=== PATIENT | female | born 1935 | race Caucasian/White ===

== ENCOUNTER → 2019-01-23 | Outpatient (CLI) | payer MEDICARE ==
[~2019-01-23] MED LIST: IOHEXOL 240 MG/ML 50ML VIAL. ONE; IOHEXOL 300 MG/ML 75 ML VIAL. IV ONE
[2019-01-23 13:40] LABS: CREATININE 2.6 mg/dL (0.6-1.0); GFR 17.7
--- NOTE | 2019-01-23 14:49 | RAD ---
EXAM: Abdomen and pelvis CT without intravenous contrast. HISTORY: Weight loss. TECHNIQUE: Computed tomographic images of the abdomen and pelvis were obtained without contrast. *One or more of the following individualized dose reduction techniques were utilized for this examination: 1. Automated exposure control. 2. Adjustment of the mA and/or kV according to patient size. 3. Use of iterative reconstruction technique. COMPARISON: None. FINDINGS: Evaluation of the lower thorax demonstrates nonspecific groundglass opacity within both lungs likely due to atelectasis. There is superimposed right middle lobe and lingular pleural parenchymal scarring. There is no pleural effusion. The heart is upper normal in size. There is dense calcification of the mitral valve annulus. There is coronary artery atherosclerosis. There are few nonspecific anterior cardiophrenic angle lymph nodes. There is mild hepatomegaly. There are suspected recanalization of the umbilical vein. There is suggestion of slight surface nodularity. There is vicarious excretion of contrast into the gallbladder. There is a tiny proximal duodenal diverticulum. The pancreas is unremarkable. The spleen is mildly enlarged, measuring 12.7 cm in maximum dimension. The adrenal glands are unremarkable. There is a 1 mm nonobstructing left renal stone. There are hypodense lesions within the upper pole the right kidney likely due to cysts. There is mild superior right renal cortical thinning. There is moderate colonic stool. There is distal colonic diverticulosis without evidence of diverticulitis. The bladder is unremarkable. There is a calcification along the left posterior course of the urethra. This appears to be separate from the vagina. There is a tiny focus of gas within the bladder likely due to recent catheterization. There is aortic and aortic branch vessel atherosclerosis. There is degenerative change predominantly at L5-S1. IMPRESSION: 1. Mild hepatosplenomegaly. There is slight suspected recanalization of the umbilical vein which may be due to a component of cirrhosis. Correlate with liver function laboratory values. 2. Colonic diverticulosis. 3. Small right renal cysts. 4. No acute abdominal or pelvic finding. Electronically signed by: Yoko Garcias MD (01/23/2019 2:46 PM) [place] [id number]
== END | disposition home or self-care (01) ==
LOC: CT 12:22
PROVIDERS: ATTEND Registered Nurse
DX: K57.30 Diverticulosis of large intestine without perforation or abscess without bleeding (principal); N28.1 Cyst of kidney, acquired; R16.2 Hepatomegaly with splenomegaly, not elsewhere classified; N20.0 Calculus of kidney; I70.0 Atherosclerosis of aorta; I25.10 Atherosclerotic heart disease of native coronary artery without angina pectoris
CPT/HCPCS: 36415; 74176; 82565; 84520

== ENCOUNTER → 2019-05-14 | Outpatient (CLI) | payer MEDICARE ==
[2019-05-14 12:04] LABS: BASO % 1 % (0-3); EOS # 0.1 x10^3/uL (0.0-0.7); EOS % 2 % (0-3); HEMATOCRIT 31.6 % (36.0-47.0); HEMOGLOBIN 10.7 g/dL (12.0-15.5); LYMPH % 20 % (24-48); MEAN CORPUSCULAR HEMOGLOBIN 33 pg (25-35); MEAN CORPUSCULAR HGB CONC 34 g/dL (31-37); MEAN CORPUSCULAR VOLUME 97 fL (79-100); MONO # 0.4 x10^3/uL (0.0-1.1); MONO % 8 % (0-9); NEUT # 3.5 x10^3uL (1.8-7.7); NEUT % 70 % (31-73); PLATELET COUNT 173 x10^3/uL (140-400); RED BLOOD COUNT 3.27 x10^6/uL (3.50-5.40); RED CELL DISTRIBUTION WIDTH 14.7 % (11.5-14.5); WHITE BLOOD COUNT 5.1 x10^3/uL (4.0-11.0)
== END | disposition home or self-care (01) ==
LOC: LAB 11:08
PROVIDERS: ATTEND Internal Medicine Hematology & Oncology
DX: D64.9 Anemia, unspecified (principal)
CPT/HCPCS: 36415; 82607; 82728; 83540; 83550; 83921; 85025

== ENCOUNTER → 2019-05-21 | Outpatient (CLI) | payer MEDICARE ==
[2019-05-21 09:30] LABS: BASO % 1 % (0-3); EOS # 0.2 x10^3/uL (0.0-0.7); EOS % 3 % (0-3); HEMATOCRIT 31.2 % (36.0-47.0); HEMOGLOBIN 10.6 g/dL (12.0-15.5); LYMPH % 21 % (24-48); MEAN CORPUSCULAR HEMOGLOBIN 33 pg (25-35); MEAN CORPUSCULAR HGB CONC 34 g/dL (31-37); MEAN CORPUSCULAR VOLUME 97 fL (79-100); MONO # 0.3 x10^3/uL (0.0-1.1); MONO % 7 % (0-9); NEUT # 3.4 x10^3uL (1.8-7.7); NEUT % 68 % (31-73); PLATELET COUNT 191 x10^3/uL (140-400); RED BLOOD COUNT 3.23 x10^6/uL (3.50-5.40); RED CELL DISTRIBUTION WIDTH 14.5 % (11.5-14.5); WHITE BLOOD COUNT 4.9 x10^3/uL (4.0-11.0)
== END | disposition home or self-care (01) ==
LOC: LAB 08:37
PROVIDERS: ATTEND Internal Medicine Hematology & Oncology
DX: D50.0 Iron deficiency anemia secondary to blood loss (chronic) (principal)
CPT/HCPCS: 36415; 85025

== ENCOUNTER → 2019-06-17 | Outpatient (CLI) | payer MEDICARE ==
[2019-06-17 13:45] LABS: BASO % 1 % (0-3); EOS # 0.1 x10^3/uL (0.0-0.7); EOS % 2 % (0-3); HEMOGLOBIN 10.1 g/dL (12.0-15.5); LYMPH # 1.3 x10^3/uL (1.0-4.8); LYMPH % 24 % (24-48); MEAN CORPUSCULAR HEMOGLOBIN 33 pg (25-35); MEAN CORPUSCULAR HGB CONC 34 g/dL (31-37); MEAN CORPUSCULAR VOLUME 97 fL (79-100); MONO # 0.5 x10^3/uL (0.0-1.1); MONO % 9 % (0-9); NEUT # 3.5 x10^3uL (1.8-7.7); NEUT % 64 % (31-73); PLATELET COUNT 184 x10^3/uL (140-400); RED BLOOD COUNT 3.11 x10^6/uL (3.50-5.40); RED CELL DISTRIBUTION WIDTH 12.6 % (11.5-14.5); WHITE BLOOD COUNT 5.5 x10^3/uL (4.0-11.0)
== END | disposition home or self-care (01) ==
LOC: LAB 13:15
PROVIDERS: ATTEND Internal Medicine Hematology & Oncology
DX: D50.0 Iron deficiency anemia secondary to blood loss (chronic) (principal)
CPT/HCPCS: 36415; 82728; 83540; 83550; 85025

== ENCOUNTER → 2019-08-21 | Outpatient (CLI) | payer MEDICARE ==
--- NOTE | 2019-08-21 15:09 | RAD ---
INDICATION: Right calf pain and redness COMPARISON: None. TECHNIQUE: Grayscale, color and doppler ultrasound images were obtained of the right lower extremity venous vasculature. RIGHT: No thrombus identified in the common femoral vein, femoral vein, popliteal vein or visualized calf veins. IMPRESSION: * No thrombus identified in deep venous system of right lower extremity. Electronically signed by: Yossi Quinteros MD (08/21/2019 3:06 PM) [facility]
--- NOTE | 2019-08-22 04:28 | RAD ---
Two-view right knee HISTORY: Pain Limited 2 view AP lateral views The visualized osseous structures appear normal. IMPRESSION: No acute findings. Electronically signed by: Oseas Lopez III, MD (08/22/2019 4:25 AM) [facility]
== END | disposition home or self-care (01) ==
LOC: PMG 13:33
PROVIDERS: ATTEND Registered Nurse
DX: M25.561 Pain in right knee (principal); M79.661 Pain in right lower leg
CPT/HCPCS: 73560; 93971

== ENCOUNTER → 2019-08-22 | Outpatient (CLI) | payer MEDICARE ==
[2019-08-22 13:56] LABS: GFR 15.5
[2019-08-22 13:58] LABS: CREATININE 2.9 mg/dL (0.6-1.0)
== END | disposition home or self-care (01) ==
LOC: LAB 12:53
PROVIDERS: ATTEND Internal Medicine Hematology & Oncology
DX: D50.0 Iron deficiency anemia secondary to blood loss (chronic) (principal)
CPT/HCPCS: 36415; 82565; 82607; 82728; 83540; 83550

== ENCOUNTER 2019-10-15 21:57 | Inpatient (IN) | payer MEDICARE ==
[~2019-10-15] VITALS: Ht 157.5 cm; Wt 77.6 kg
[2019-10-15] MEDS ORDERED: ONDANSETRON PF 4 MG/2 ML VIAL. IVP ONE (22:45)
--- NOTE | 2019-10-15 23:20 | PHYS DOC ---
Adult General Chief Complaint Chief Complaint: Neck Pain HPI HPI 84-year-old female presents with left-sided neck and ear pain. The patient started having this discomfort yesterday but is gone much worse today. He comes in waves all by itself. She denies any trauma. She hasn't had pain like this before it is moderate to severe and it intensity. She describes it as a shooting, stabbing pain. Even touching the skin along side of her neck or ear is very sensitive. She has had shingles in the past and states that this pain is different. She is very concerned about this because she has a carotid stent on the side. Sure there is nothing going on with that. Denies dizziness, fever, chills, shortness of breath, chest pain. Review of Systems Review of Systems Constitutional: Denies fever or chills [] Eyes: Denies change in visual acuity, redness, or eye pain [] HENT: Left sided neck and ear pain[] Respiratory: Denies cough or shortness of breath [] Cardiovascular: No additional information not addressed in HPI [] GI: Denies abdominal pain, nausea, vomiting, bloody stools or diarrhea [] : Denies dysuria or hematuria [] Musculoskeletal: Denies back pain or joint pain [] Integument: Denies rash or skin lesions [] Neurologic: Denies headache, focal weakness or sensory changes [] Endocrine: Denies polyuria or polydipsia [] All other systems were reviewed and found to be within normal limits, except as documented in this note. Current Medications Current Medications Current Medications Medications (Trade) Dose Ordered Sig/[facility] Start Time Stop Time Status Last Admin Dose Admin Fentanyl Citrate (Fentanyl 2ml Vial) 75 mcg 1X ONCE 10/15/19 22:45 10/15/19 23:14 DC Ondansetron HCl (Zofran) 4 mg 1X ONCE 10/15/19 22:45 10/15/19 23:14 DC Allergies Allergies Allergies Coded Allergies Type Severity Reaction Last Updated Verified Sulfa (Sulfonamide Antibiotics) Allergy Intermediate Hives 01/23/19 Yes morphine Adverse Reaction Intermediate Nausea and Vomiting 01/23/19 Yes Physical Exam Physical Exam Constitutional: Well developed, well nourished, mild acute distress, non-toxic appearance. [] HENT: Normocephalic, atraumatic, bilateral external ears normal, oropharynx moist, no oral exudates, nose normal. [] Eyes: PERRLA, EOMI, conjunctiva normal, no discharge. [] Neck: Normal range of motion, no tenderness, supple, no stridor. [] Cardiovascular: Heart rate regular rhythm, no murmur [] Lungs & Thorax: Bilateral breath sounds clear to auscultation [] Abdomen: Bowel sounds normal, soft, no tenderness, no masses, no pulsatile masses. [] Skin: Extremely sensitive skin to the touch along the left neck and left ear. No obvious erythema or warmth. Some swelling of the lower lateral neck area.[] Back: No tenderness, no CVA tenderness. [] Extremities: No tenderness, no cyanosis, no clubbing, ROM intact, no edema. [] Neurologic: Alert and oriented X 3, normal motor function, normal sensory function, no focal deficits noted. [] Psychologic: Affect normal, judgement normal, mood normal. [] EKG EKG [] Radiology/Procedures Radiology/Procedures [] Impressions: Exam: Ultrasound left carotid Indication: Left ear pain Technique: Real-time grayscale and color Doppler images of the left carotid were obtained by the department call center agent. Comparisons: None FINDINGS: Peak systolic velocity as follows: Left: Common carotid artery: 250 cm/s Internal carotid artery: 163 cm/s External carotid artery: 153 cm/s Patent left common carotid artery stent is noted. Left vertebral artery is not visualized. IMPRESSION: Left common carotid artery stent which is patent, with mild elevated velocities. Mild plaque is noted at the origin of the right internal carotid artery without flow-limiting stenosis. Electronically signed by: Syl Maier MD (10/16/2019 12:22 AM) [facility] DICTATED AND SIGNED BY: SYL MAIER MD DATE: 10/16/19 0022 CC: TEOFILO VALDEZ DO; [facility] [employer] ~ Exam: CT soft tissue neck without contrast INDICATION: Left-sided severe neck pain TECHNIQUE: Sequential axial images through the neck obtained without IV contrast. Sagittal and coronal reformatted images were reconstructed from the axial data and reviewed. Comparisons: None FINDINGS: Visualized intracranial structures are unremarkable. Visualized portions of the paranasal sinuses and mastoid air cells are well-pneumatized. Evaluation vascular structures is limited secondary to noncontrast exam. Metallic stent is noted within the left internal carotid artery. There is dense calcified plaque at the origin of the right internal carotid artery. Nasopharynx, oropharynx, hypopharynx and larynx are patent. Thyroid and salivary glands are within normal limits. No enlarged cervical lymph nodes are identified. Subtle groundglass opacity in the left upper lobe series 2 image 80. No suspicious osseous lesions or acute fractures. IMPRESSION: 1. Dense calcified plaque at the origin of the right internal carotid artery. 2. Left metallic carotid stent is noted. 3. No focal fluid collection or mass identified in the neck. Exposure: One or more of the following in the visualized dose reduction techniques were utilized for this examination: 1. Automated exposure control 2. Adjustment of the MA and/or KV according to patient size 3. Use of iterative of reconstructive technique Electronically signed by: Syl Maier MD (10/16/2019 12:20 AM) [facility] DICTATED AND SIGNED BY: SYL MAIER MD DATE: 10/16/1919 CC: TEOFILO VALDEZ DO; [employer] [facility] ~ Course & Med Decision Making Course & Med Decision Making Pertinent Labs and Imaging studies reviewed. (See chart for details) The patient's labs show an elevated BUN and creatinine which is to be expected with her known kidney disease. Her potassium is also 5.2. The rest of her labs are unremarkable. The patient's CT of the neck as well as her ultrasound of the carotids is mostly unremarkable. There is some slight increased velocity and mild plaque of the stent, but no significant blockage. He was in place. See official report for details. An elderly sure what's causing the patient's pain. I do not see a rash however and concern for shingles. I will treat the patient with Valtrex in the ED. her pain has not been well controlled despite 2 doses of fentanyl. I will try milligram of Dilaudid, 100 mg of Neurontin. The patient's pain, I believe it is worthwhile to admit her to the hospital. I spoke with Dr. Whitman and he has accepted her for admission. [] Dragon Disclaimer Dragon Disclaimer This electronic medical record was generated, in whole or in part, using a voice recognition dictation system. Departure Departure: Impression: Primary Impression: Neck pain Additional Impression: Acute herpes zoster neuropathy Disposition: ADMITTED INPATIENT Admitting Physician: Michael Whitman Condition: STABLE Referrals: [facility] [employer] (PCP) Patient Instructions: Kevyn, [id number] Problem Qualifiers TEOFILO VALDEZ DO Oct 15, 2019 23:20
[2019-10-15 23:44] LABS: BASO % 1 % (0-3); EOS # 0.1 x10^3/uL (0.0-0.7); EOS % 1 % (0-3); HEMOGLOBIN 10.1 g/dL (12.0-15.5); LYMPH # 1.6 x10^3/uL (1.0-4.8); LYMPH % 24 % (24-48); MEAN CORPUSCULAR HEMOGLOBIN 34 pg (25-35); MEAN CORPUSCULAR HGB CONC 34 g/dL (31-37); MEAN CORPUSCULAR VOLUME 99 fL (79-100); MONO # 0.6 x10^3/uL (0.0-1.1); MONO % 9 % (0-9); NEUT # 4.2 x10^3uL (1.8-7.7); NEUT % 65 % (31-73); PLATELET COUNT 229 x10^3/uL (140-400); RED BLOOD COUNT 3.03 x10^6/uL (3.50-5.40); RED CELL DISTRIBUTION WIDTH 13.2 % (11.5-14.5); WHITE BLOOD COUNT 6.4 x10^3/uL (4.0-11.0)
[2019-10-15 23:53] LABS: CALCIUM 8.8 mg/dL (8.5-10.1); CREATININE 2.7 mg/dL (0.6-1.0); GFR 16.9; POTASSIUM 5.2 mmol/L (3.5-5.1)
[2019-10-15 23:56] LABS: ALBUMIN 3.9 g/dL (3.4-5.0); TOTAL BILIRUBIN 0.2 mg/dL (0.2-1.0); TOTAL PROTEIN 7.7 g/dL (6.4-8.2)
--- NOTE | 2019-10-16 00:22 | RAD ---
Exam: CT soft tissue neck without contrast INDICATION: Left-sided severe neck pain TECHNIQUE: Sequential axial images through the neck obtained without IV contrast. Sagittal and coronal reformatted images were reconstructed from the axial data and reviewed. Comparisons: None FINDINGS: Visualized intracranial structures are unremarkable. Visualized portions of the paranasal sinuses and mastoid air cells are well-pneumatized. Evaluation vascular structures is limited secondary to noncontrast exam. Metallic stent is noted within the left internal carotid artery. There is dense calcified plaque at the origin of the right internal carotid artery. Nasopharynx, oropharynx, hypopharynx and larynx are patent. Thyroid and salivary glands are within normal limits. No enlarged cervical lymph nodes are identified. Subtle groundglass opacity in the left upper lobe series 2 image 80. No suspicious osseous lesions or acute fractures. IMPRESSION: 1. Dense calcified plaque at the origin of the right internal carotid artery. 2. Left metallic carotid stent is noted. 3. No focal fluid collection or mass identified in the neck. Exposure: One or more of the following in the visualized dose reduction techniques were utilized for this examination: 1. Automated exposure control 2. Adjustment of the MA and/or KV according to patient size 3. Use of iterative of reconstructive technique Electronically signed by: Syl Caballero MD (10/16/2019 12:20 AM) [facility]
--- NOTE | 2019-10-16 00:26 | RAD ---
Exam: Ultrasound left carotid Indication: Left ear pain Technique: Real-time grayscale and color Doppler images of the left carotid were obtained by the department fingerprint expert. Comparisons: None FINDINGS: Peak systolic velocity as follows: Left: Common carotid artery: 250 cm/s Internal carotid artery: 163 cm/s External carotid artery: 153 cm/s Patent left common carotid artery stent is noted. Left vertebral artery is not visualized. IMPRESSION: Left common carotid artery stent which is patent, with mild elevated velocities. Mild plaque is noted at the origin of the right internal carotid artery without flow-limiting stenosis. Electronically signed by: Syl Caballero MD (10/16/2019 12:22 AM) [facility]
[2019-10-16] MEDS ORDERED: valACYclovir 500 MG TABLET. PO ONE (00:45)
[2019-10-16] MEDS ORDERED: GABAPENTIN 100 MG CAPSULE. PO ONE (01:00)
[2019-10-16] MEDS ORDERED: HYDROmorphone PF 1 MG/ML DISP.SYRIN IV ONE (01:00)
[2019-10-16] MEDS ORDERED: ONDANSETRON PF 4 MG/2 ML VIAL. IV PRN (01:15)
[2019-10-16] MEDS ORDERED: HYDROmorphone PF 1 MG/ML DISP.SYRIN IV PRN (01:15)
[2019-10-16] MEDS ORDERED: METOCLOPRAMIDE HCL 10 MG/2 ML VIAL. ONE (02:21)
[2019-10-16] MEDS ORDERED: METOCLOPRAMIDE HCL 10 MG/2 ML VIAL. IVP ONE (02:30)
[2019-10-16 03:22] VITALS: BP 146/73
[2019-10-16] MEDS ORDERED: ESCI5TAB PO (04:28)
[2019-10-16] MEDS ORDERED: PANT40TA5 PO (04:28)
[2019-10-16] MEDS ORDERED: METO5TAB PO (04:28)
[2019-10-16] MEDS ORDERED: FURO40TA4 PO (04:28)
[2019-10-16] MEDS ORDERED: METO2.5T PO (04:28)
[2019-10-16] MEDS ORDERED: LOSA100T14 PO (04:28)
[2019-10-16] MEDS ORDERED: LEVO88TA4 PO (04:28)
[2019-10-16] MEDS ORDERED: ROSU20TA28 PO (04:28)
[2019-10-16] MEDS ORDERED: CLOP75TA PO (04:28)
[2019-10-16 06:32] VITALS: BP 141/79
[2019-10-16] MEDS ORDERED: metOLazone 2.5 MG TABLET PO SCH (09:00)
[2019-10-16] MEDS ORDERED: FUROSEMIDE 40 MG TABLET PO SCH (09:00)
[2019-10-16 09:16] LABS: ALBUMIN 3.7 g/dL (3.4-5.0); CALCIUM 8.7 mg/dL (8.5-10.1); CREATININE 2.6 mg/dL (0.6-1.0); GFR 17.6; TOTAL BILIRUBIN 0.3 mg/dL (0.2-1.0); TOTAL PROTEIN 7.4 g/dL (6.4-8.2)
[2019-10-16 09:19] LABS: BASO % 1 % (0-3); EOS % 0 % (0-3); HEMATOCRIT 28.7 % (36.0-47.0); HEMOGLOBIN 9.5 g/dL (12.0-15.5); LYMPH # 1.1 x10^3/uL (1.0-4.8); LYMPH % 16 % (24-48); MEAN CORPUSCULAR HEMOGLOBIN 33 pg (25-35); MEAN CORPUSCULAR HGB CONC 33 g/dL (31-37); MEAN CORPUSCULAR VOLUME 101 fL (79-100); MONO # 0.4 x10^3/uL (0.0-1.1); MONO % 6 % (0-9); NEUT # 5.3 x10^3uL (1.8-7.7); NEUT % 77 % (31-73); PLATELET COUNT 223 x10^3/uL (140-400); RED BLOOD COUNT 2.86 x10^6/uL (3.50-5.40); RED CELL DISTRIBUTION WIDTH 13.2 % (11.5-14.5); WHITE BLOOD COUNT 6.8 x10^3/uL (4.0-11.0)
[2019-10-16] MEDS: CLOPIDOGREL BISULFATE 75 MG TABLET PO SCH (09:37)
[2019-10-16] MEDS: ATORVASTATIN CALCIUM 20 MG TABLET PO SCH (09:37)
[2019-10-16] MEDS: LEVOTHYROXINE 88 MCG TABLET PO SCH (09:38)
[2019-10-16] MEDS: LOSARTAN 50 MG TABLET. PO SCH (09:38)
[2019-10-16] MEDS: PANTOPRAZOLE 40 MG TABLET. PO SCH (09:38)
[2019-10-16 11:00] VITALS: BP 123/65
[2019-10-16] MEDS ORDERED: METOCLOPRAMIDE 5 MG TABLET PO SCH (11:30)
[2019-10-16] MEDS ORDERED: METOCLOPRAMIDE 10 MG TABLET PO SCH (11:30)
[2019-10-16] MEDS: oxyCODONE IR 5 MG TABLET PO PRN ×2 (11:32→17:25)
[2019-10-16] MEDS: PROCHLORPERAZINE 10 MG/2 ML VIAL. IV PRN (12:57)
[2019-10-16 15:54] VITALS: BP 126/72
[2019-10-16] MEDS: FUROSEMIDE 40 MG TABLET PO SCH (17:25)
[2019-10-16 19:29] VITALS: BP 128/70
--- NOTE | 2019-10-16 20:45 | RAD ---
Examination: CT CERVICAL SPINE WO CONTRAST History: Severe left sided neck pain Comparison/Correlation: 10/15/2019 CT neck without contrast Findings: Axial images of the cervical spine were obtained without contrast. Sagittal and coronal reformatted images were provided. Left carotid stent is incidentally seen. Significant calcific involvement of the right carotid bulb noted. Surgical clips involve the left side of the neck. Atlantoaxial joint degenerative remodeling is present. Alignment of the cervical spine is unremarkable. Mild C2-3 and moderate C4-5 disc space narrowing is present. Mild C6-7 disc space narrowing. Neural foramina are patent. Spinal canal is widely patent. No fracture or bony destructive finding. Neural foramina are patent. No evidence of disc herniation or disc bulge. Advanced temporomandibular joint degenerative change bilaterally seen. Minimal right lung apical scarring noted. Impression: Mild cervical spine degenerative change. PQRS Compliance Statement: One or more of the following individualized dose reduction techniques were utilized for this examination: 1. Automated exposure control 2. Adjustment of the mA and/or kV according to patient size 3. Use of iterative reconstruction technique Electronically signed by: Milind Sewell MD (10/16/2019 8:42 PM) [facility]
--- NOTE | 2019-10-16 20:49 | HP ---
ADMIT DATE: 10/16/2019 HISTORY OF PRESENT ILLNESS: The patient is an 84-year-old female patient who presented complaining of left-sided neck and ear pain. The patient started having this discomfort for almost 2 weeks ago. That pain has, however, gotten much worse over the last few days. She stated the pain comes in waves or by itself. She denied any trauma, denied any fall or car accident, has not had pain like this before. It is moderate to severe in intensity. She describes it as shooting, stabbing pain, even touching the skin alongside of her neck or ear is very sensitive. She has had shingles before in the past under the left lower thoracic area, but not in this area, but stated that this pain is different. The pain is aggravated by movement, touching or even chewing food in the left side. She is very concerned about this because she has a carotid stent on the same side; however, denied any headache, denied any blurring of vision, tingling or numbness on the left side. She was extensively investigated in the Emergency Room. Her lab work showed that she has normochromic normocytic anemia that is stable. She has also chronic kidney disease, mild hyperkalemia. Her CT scan of the soft tissue showed dense calcified plaque at the origin of the right internal carotid artery and she also has left metallic carotid stent noted, no focal fluid collection or masses identified in the neck. She was admitted. While in the Emergency Room, she was apparently treated for possible shingles and was given acyclovir. She was treated also with hydromorphone, gabapentin as well as furosemide and metolazone and was admitted for further evaluation and treatment. PAST MEDICAL HISTORY: Significant for coronary artery disease, status post coronary artery bypass graft surgery. She has hypertension, hyperlipidemia, nephrolithiasis, carotid artery disease, gastroesophageal reflux disease and severe esophagitis. She also has osteoarthritis, hypothyroidism and chronic renal failure. PAST SURGICAL HISTORY: Significant for left heart catheterization and stent deployment, bilateral cataract extraction, appendectomy, total abdominal hysterectomy. She also had percutaneous coronary artery intervention with stent deployment and left carotid endarterectomy and stent deployment. FAMILY HISTORY: Positive for coronary artery disease in her mother and father. Her brother at age of 92 because of prostate cancer. He has 3 older sisters, all of them in their early 70s, two with complication of diabetes and one had a stroke. SOCIAL HISTORY: She is , lives alone. She has two daughters. Her son at the age of 11 because of malignant brain tumor. She is an ex-smoker, quit 36 years ago. She does not drink alcohol or use any recreational drugs. She has moved to live with her daughter from [place]. REVIEW OF SYSTEMS: The patient denied any blurring of vision, has had bilateral cataract extraction, but denied any glaucoma or macular degeneration. 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 She has also some nosebleed, but denied any nasal stuffiness or postnasal drip. Denied any sore throat, sore tongue, toothache, hoarseness of voice or difficulty swallowing. Did complain that the chewing aggravates the pain on her left side, but denied any nausea, vomiting, diarrhea or constipation. Denied any hematemesis, melena or hematochezia. Denied any dysuria, frequency or hematuria. Denied any chest pain. Denied any shortness of breath, orthopnea, or paroxysmal nocturnal dyspnea. Denied any cough, phlegm or hemoptysis. PHYSICAL EXAMINATION: GENERAL: On arrival to the Emergency Room, she looked well, slightly pale, but no jaundice or cyanosis. No lymphadenopathy, no thyromegaly. No jugular venous distention. No lower limb edema. VITAL SIGNS: Her heart rate was 77, blood pressure was 169/74, temperature was 97.7, respiratory rate was 18 and oxygen saturation was 99% on 2 liters of oxygen. HEAD, EYES, EARS, NOSE AND THROAT: Showed normocephalic, atraumatic. NECK: Supple. HEART: Normal first and second heart sounds with no gallop or murmur. CHEST: Clear to auscultation. No crepitation or rhonchi. ABDOMEN: Distended, soft, nontender. No guarding or rigidity. No organomegaly. All hernial orifice intact. Bowel sounds normal. NEUROLOGIC: She is awake, alert, responding appropriately. All cranial nerves intact. EXTREMITIES: She moves extremities without difficulty. Examination of the left side of the face, particularly her left-sided neck and ear very exquisitely sensitive to touch that distribution involves the skin of the ear and the left side of the neck and part of the left jaw. LABORATORY DATA: Her lab work on admission showed a serum sodium 137, potassium 5.2, chloride 100, bicarbonate 26, anion gap of 11, BUN 98, creatinine 2.7, estimated GFR was 17 mL per minute. Her glucose was 98, calcium was 8.8. Total bilirubin, AST, ALT, alkaline phosphatase were normal. Total protein was 7.7, albumin was 3.9. Her white cell count was 6400, hemoglobin 10, hematocrit 30, MCV 99, and platelet count 229,000. ASSESSMENT AND PLAN: Severe left-sided head and neck involving the left side of the neck and left ear, very painful on touching with movement and when chewing on the left side and there are no blisters. The pain started about 2 weeks ago, currently the patient making herpes zoster very unlikely. Her symptoms are more with either trigeminal neuralgia or some form of cervical nerve entrapment. I will consult Dr. Quezada. I will also arrange for CT scan of the cervical spine and start her on a small dose of gabapentin given that her kidney function is markedly impaired. Meanwhile, continue with IV pain medication. I would reconcile all her medication. I am not sure that she needs acyclovir given her impaired kidney function and the picture is not consistent with her herpes zoster. MERARI ORTIZ MD DR: ADRIEL/robbie JOB#: [id number] / [id number]
[2019-10-16] MEDS: carBAMazepine 100 MG TAB.CHEW PO SCH (21:46)
[2019-10-16 22:21] VITALS: BP 129/67
[2019-10-17] MEDS: oxyCODONE IR 5 MG TABLET PO PRN ×2 (05:16→09:07)
[2019-10-17] MEDS: LEVOTHYROXINE 88 MCG TABLET PO SCH (05:16)
[2019-10-17 05:39] VITALS: BP 134/72
[2019-10-17] MEDS ORDERED: metOLazone 2.5 MG TABLET PO SCH (09:00)
[2019-10-17] MEDS: FUROSEMIDE 40 MG TABLET PO SCH (09:07)
[2019-10-17] MEDS: ATORVASTATIN CALCIUM 20 MG TABLET PO SCH (09:07)
[2019-10-17] MEDS: PROCHLORPERAZINE 10 MG/2 ML VIAL. IV PRN (09:07)
[2019-10-17] MEDS: PANTOPRAZOLE 40 MG TABLET. PO SCH (09:07)
[2019-10-17] MEDS: CLOPIDOGREL BISULFATE 75 MG TABLET PO SCH (09:07)
[2019-10-17] MEDS: LOSARTAN 50 MG TABLET. PO SCH (09:08)
[2019-10-17] MEDS: carBAMazepine 100 MG TAB.CHEW PO SCH (09:08)
[2019-10-17] MEDS ORDERED: ONDANSETRON ODT 4 MG TAB.RAPDIS PO PRN (10:15)
[2019-10-17] MEDS ORDERED: POLYETHYLENE GLYCOL 3350 17 GM PACKET. PO PRN (10:30)
[2019-10-17 10:53] VITALS: BP 111/62
[2019-10-17] MEDS ORDERED: carBAMazepine 100 MG TAB.CHEW PO SCH (14:00)
[2019-10-17 15:05] VITALS: BP 96/62
[2019-10-17] MEDS ORDERED: HYDR2TAB31 PO (15:21)
[2019-10-17] MEDS ORDERED: CARB200T PO (15:21)
--- NOTE | 2019-10-17 18:16 | DS ---
DATE OF DISCHARGE: 10/17/2019 HOSPITAL COURSE: The patient is an 84-year-old female patient who came to the Emergency Room complaining of severe pain that affects the left side of her face and neck and her left ear that has been going on for the last 2 weeks. The pain is worse; however, the pain has been much worse over the last few days and states the pain comes in waves. She denied any trauma, denied any fall or car accident, has not had any pain like this before. It is moderate to severe intensity, described as shooting, stabbing pain, even touching the skin alongside her neck and use it. She had shingles before in the past under the left lower thoracic area, but not in this area, said that this pain is different. The pain is aggravated by movement, touching or even chewing food in the left side. She is very concerned about this because she has had a carotid stent on that same side; however, she denied any headache, denied any blurring of vision, tingling or numbness in the left side. She was extensively investigated in the Emergency Room. Her lab work showed that she has normochromic normocytic anemia that is stable. She also has chronic kidney disease, mild hyperkalemia. CT scan of soft tissue showed dense calcified plaques at the origin of the right internal carotid artery and she also has left metallic carotid stent in place, but no focal fluid collection or masses identified in the neck. She was admitted in the Emergency, was treated for possible shingle, was given acyclovir, although given the length of time, the patient has ____ shingles very unlikely. She was treated also with hydromorphone, gabapentin as well as furosemide and metolazone. Clinically, my impression was that the patient has trigeminal neuralgia. We did actually a CT scan of the cervical spine, which basically showed that the atlantoaxial joint degenerative remodeling is present. Alignment of cervical spine is unremarkable. Mild C2-C3 and moderate C4-C5 disk space narrowing is present, mild C6-C7 disk space narrowing, neural foramina are patent, spinal canal is widely patent, no fracture or bony destructive finding. No evidence of disk herniation or disk bulge and did have advanced temporomandibular joint degenerative changes bilaterally seen. Minimal right lung apical scarring noted. The patient was started empirically on Tegretol and apparently she did very well. She was seen by Dr. Quezada, who increased her Tegretol 3 times a day and a decision was made to discharge her home to follow with Dr. Quezada as an outpatient. PHYSICAL EXAMINATION: GENERAL: When I examined her this afternoon, she looked well and was clearly in no apparent respiratory distress. No pallor, jaundice, cyanosis or thyromegaly. No jugular venous distention. No limb edema. VITAL SIGNS: Her heart rate was 65, blood pressure was 96/62, temperature was 97.9, respiratory rate was 20, and oxygen saturation 100% on 2 liters of oxygen. HEAD, EYES, EARS, NOSE AND THROAT: Normocephalic, atraumatic. NECK: Supple. HEART: Showed normal first and second heart sounds. No gallop, rub or murmur. CHEST: Clear to auscultation. No crepitation or rhonchi. ABDOMEN: Distended, soft, nontender. NEUROLOGIC: She is awake, alert, responding appropriately. All cranial nerves intact. She moves extremities without difficulty. Her intake over the last 24 hours and output were incompletely recorded. LABORATORY DATA: As of yesterday showed a white cell count of 6800, hemoglobin 9.5, hematocrit 29, MCV 101 and platelet count 223,000. Her chemistry showed a serum sodium 137, potassium 5, chloride 101, bicarbonate 26, anion gap of 10, BUN 93, creatinine 2.6, estimated GFR was 17.6 mL per minute. Her glucose 127, calcium was 8.7. Total bilirubin, AST, ALT, alkaline phosphatase were normal. Total protein 7.4, albumin 3.7. DISCHARGE MEDICATIONS: She was discharged home to continue on carbamazepine for Tegretol 100 mg 3 times a day, hydromorphone 1 mg every 6 hours as needed. She should continue also on Plavix 75 mg once a day, furosemide 40 mg twice a day, levothyroxine sodium 88 mcg once a day, losartan potassium 100 mg once a day, metoclopramide 10 mg t.i.d. before meals, metolazone 2.5 mg daily, Protonix 40 mg once a day and Crestor 20 mg once a day. FINAL DISCHARGE DIAGNOSES: 1. Trigeminal neuralgia. 2. Coronary artery disease, status post percutaneous coronary intervention with stent deployment. 3. Hypertension. 4. Hyperlipidemia. 5. Nephrolithiasis. 6. Carotid artery disease, status post left carotid stent deployment. 7. Gastroesophageal reflux disease. 8. Hypothyroidism. 9. Chronic kidney disease. MERARI ORTIZ MD DR: ADRIEL/robbie JOB#: [id number] / [id number]
--- NOTE | 2019-10-19 14:58 | CONS ---
DATE OF CONSULTATION: 10/17/2019 REFERRING PHYSICIAN: Dr. Whitman. REASON FOR CONSULTATION: Severe left facial pain. HISTORY OF PRESENT ILLNESS: This is an 84-year-old right-handed female who was admitted through Emergency Room on 10/15/2019 after she presented with a 3-week history of intermittent left facial pain described as electrical lancinating severe brief shooting pain, lasted a few seconds. It has been frequent on a daily basis. The symptoms have worsened in the last few days. She describes pain going behind the left ear and radiating to the frontal and facial territories and associated with neck pain radiating to the shoulder blades. The pain is usually aggravated by chewing food on the left side, applying pressure on the left face. She was placed on carbamazepine with Dr. Whitman with some improvement of severity and frequency of the pain. She denies any recent head injuries or fall. The patient denies any history of stroke; however, she states she has history of shingles and she was treated with acyclovir, gabapentin as well as hydromorphone. PAST MEDICAL HISTORY: Significant for coronary artery disease, status post coronary artery bypass graft, hypertension, hyperlipidemia, carotid artery stenosis, GERD and esophagitis. She also has history of hypothyroidism, osteoarthritis and chronic renal failure. PAST SURGICAL HISTORY: Significant for coronary artery bypass graft, bilateral cataract extraction, total abdominal hysterectomy, appendectomy, status post coronary stent placement and left carotid endarterectomy with stent placement. SOCIAL HISTORY: The patient is . She has 2 daughters and 1 son who at the age of 11 secondary to brain tumor. She quit smoking years ago. She denies alcohol drinking or illicit drug use. FAMILY HISTORY: Noncontributory. REVIEW OF SYSTEMS: A 10-point review of system was performed as mentioned above in history of present illness. CURRENT MEDICATIONS: Carbamazepine 100 mg b.i.d., Plavix 75 mg p.o. daily, furosemide 40 mg daily, Dilaudid 2 mg half tablet b.i.d. p.r.n., levothyroxine 88 mcg p.o. daily, losartan 100 mg daily, dopamine 5 mg daily, metolazone 2.5 mg daily, pantoprazole 40 mg daily, rosuvastatin 20 mg p.o. daily. ALLERGIES: SULFA DRUGS AND MORPHINE. PHYSICAL EXAMINATION: GENERAL: Well-developed, well-nourished female in no acute distress. VITAL SIGNS: Blood pressure 111/62, respiratory rate 20, pulse is 62 regular, oxygen saturation 100% on 2 liters by nasal cannula and temperature is 97.4. HEENT: Normocephalic, atraumatic. There is pressure over the bilateral TM joints bilaterally, otherwise, unremarkable. otherwise unremarkable. NECK: Supple. Negative for carotid bruit, lymphadenopathy or thyromegaly. LUNGS: Clear to A and P. CARDIOVASCULAR: Regular rate and rhythm, normal S1, S2. ABDOMEN: Soft. Bowel sounds positive. EXTREMITIES: Negative for cyanosis, clubbing or edema. NEUROLOGICAL: MENTAL STATUS: The patient is alert and oriented x 3. Speech is fluent. There is no language dysfunction. Memory, judgment, and abstract thinking are fair. The patient denies hallucination or delusion. CRANIAL NERVES: Visual wagoner are full. The pupils are reactive to light and accommodation. The extraocular movements are intact. There is no nystagmus. There is no facial motor or sensory deficit. Hearing is intact bilaterally. The palate is elevated symmetrically. Sternocleidomastoid muscles are powerful bilaterally. The patient shrugs her shoulders symmetrically, protrudes her tongue in the midline without fasciculation or atrophy. MOTOR EXAMINATION: No focal muscle bulk was seen. The tone is normal. The strength is 4/5 throughout. SENSORY EXAMINATION: Revealed normal pinprick, light touch, vibratory and position senses. Deep tendon reflexes were symmetric and hypoactive with absent Achilles responses. GAIT: Not tested. DIAGNOSTIC DATA: Cervical spine CT scan revealed mild cervical spine degenerative changes. Carotid Doppler study revealed left common carotid artery stent with mild plaque noted on the right internal carotid artery without significant stenosis. CT of the soft tissues of the neck revealed again calcified plaque at the origin of the right internal carotid artery with left metallic carotid stent. IMPRESSION: 1. Left facial pain consistent with left trigeminal neuralgia. 2. Multiple medical problems include hypertension, hyperlipidemia, coronary artery disease, status post coronary artery bypass graft and history of left carotid artery with stent placement along with bilateral TMJ tendon tenderness. RECOMMENDATIONS: 1. Continue with current management initiated by Dr. Whitman. 2. We will change carbamazepine to 100 mg t.i.d. M Penelope BRAVO MD DR: ZEE/robbie JOB#: [id number] / [id number]
== END 2019-10-17 16:02 | disposition home or self-care (01) | DRG 74 ==
LOC: ER 21:57 → 1 SOUTH 23:30
PROVIDERS: ADMIT Internal Medicine; ATTEND Internal Medicine
DX: G50.0 Trigeminal neuralgia (principal); B02.29 Other postherpetic nervous system involvement; I12.9 Hypertensive chronic kidney disease with stage 1 through stage 4 chronic kidney disease, or unspecified chronic kidney disease; N18.9 Chronic kidney disease, unspecified; E87.5 Hyperkalemia; E03.9 Hypothyroidism, unspecified; K21.9 Gastro-esophageal reflux disease without esophagitis; M19.90 Unspecified osteoarthritis, unspecified site; E78.5 Hyperlipidemia, unspecified; I25.10 Atherosclerotic heart disease of native coronary artery without angina pectoris; N20.0 Calculus of kidney; D64.9 Anemia, unspecified; Z88.5 Allergy status to narcotic agent; Z88.2 Allergy status to sulfonamides; Z98.42 Cataract extraction status, left eye; Z98.41 Cataract extraction status, right eye; Z95.1 Presence of aortocoronary bypass graft; Z95.5 Presence of coronary angioplasty implant and graft; Z90.710 Acquired absence of both cervix and uterus; Z87.891 Personal history of nicotine dependence; Z87.442 Personal history of urinary calculi; Z86.19 Personal history of other infectious and parasitic diseases; Z83.3 Family history of diabetes mellitus; Z82.49 Family history of ischemic heart disease and other diseases of the circulatory system; Z82.3 Family history of stroke
CPT/HCPCS: 36415; 70490; 72125; 80053; 85025; 93882; 96374; 96375; 96376; J0780; J1170; J2405; J2765; J3010; Q0162; 97110; 97116; 97530; 99285-25

== ENCOUNTER 2022-01-17 16:35 | Observation (INO) | payer MEDICARE ==
[~2022-01-17] VITALS: Ht 157.5 cm; Wt 78.2 kg
[~2022-01-17 16:35] MED LIST changes: +CARB200T PO; +CLOP75TA PO; +ESCI5TAB PO; +FURO40TA4 PO; +HYDR2TAB31 PO; -IOHEXOL 240 MG/ML 50ML VIAL. ONE; -IOHEXOL 300 MG/ML 75 ML VIAL. IV ONE; +LEVO88TA4 PO; +LOSA100T14 PO; +METO2.5T PO; +METO5TAB PO; +PANT40TA6 PO; +ROSU20TA28 PO
[2022-01-17] MEDS ORDERED: ACETAMINOPHEN 325 MG TABLET PO PRN ×2 (17:30→21:15)
[2022-01-17] MEDS ORDERED: diphenhydrAMINE HCL 25 MG CAPSULE PO PRN (17:30)
[2022-01-17] MEDS ORDERED: diphenhydrAMINE ORAL ELIXIR 12.5 MG/5 ML ML PO PRN (17:30)
[2022-01-17 18:23] LABS: BASO % 0 % (0-3); EOS # 0.1 x10^3/uL (0.0-0.7); EOS % 2 % (0-3); HEMATOCRIT 22.2 % (36.0-47.0); HEMOGLOBIN 7.1 g/dL (12.0-15.5); LYMPH # 0.8 x10^3/uL (1.0-4.8); LYMPH % 11 % (24-48); MEAN CORPUSCULAR HEMOGLOBIN 31 pg (25-35); MEAN CORPUSCULAR HGB CONC 32 g/dL (31-37); MEAN CORPUSCULAR VOLUME 99 fL (79-100); MONO # 0.5 x10^3/uL (0.0-1.1); MONO % 7 % (0-9); NEUT # 5.5 x10^3uL (1.8-7.7); NEUT % 79 % (31-73); PLATELET COUNT 264 x10^3/uL (140-400); RED BLOOD COUNT 2.24 x10^6/uL (3.50-5.40); RED CELL DISTRIBUTION WIDTH 17.2 % (11.5-14.5); WHITE BLOOD COUNT 6.9 x10^3/uL (4.0-11.0)
[2022-01-17 20:40] VITALS: BP 174/68
[2022-01-17] MEDS ORDERED: ACET325T21 PO (21:05)
[2022-01-17] MEDS ORDERED: FERR325T14 PO (21:05)
[2022-01-17] MEDS ORDERED: DIGO125T17 PO (21:05)
[2022-01-17] MEDS ORDERED: POLY17PO5 PO (21:05)
[2022-01-17] MEDS ORDERED: LACT1CAP19 PO (21:05)
[2022-01-17] MEDS ORDERED: IPRA3AMP29 NEB (21:05)
[2022-01-17] MEDS ORDERED: METO100T5 PO (21:05)
[2022-01-17] MEDS ORDERED: TORS20TA2 PO (21:05)
[2022-01-17] MEDS ORDERED: BUDE0.5A11 NEB (21:05)
[2022-01-17] MEDS ORDERED: ASPI-630 PO (21:05)
[2022-01-17] MEDS ORDERED: LUTE1CAP5 PO (21:05)
[2022-01-17 21:14] LABS: % EOS 7 % (0-5); % LYMPHS 8 % (24-48); % MONOS 2 % (0-10); % SEGS 83 % (35-66)
[2022-01-17 21:15] LABS: ANISOCYTOSIS SLIGHT; HYPOCHROMIA SLIGHT; MICROCYTOSIS SLIGHT; PLT ESTIMATE ADEQUATE (ADEQUATE)
[2022-01-17] MEDS ORDERED: POLYETHYLENE GLYCOL 3350 17 GM PACKET. PO SCH (21:15)
[2022-01-17] MEDS: BUDESONIDE 0.5 MG/2 ML NEBU NEB SCH (21:15)
[2022-01-17] MEDS: IPRATRPIUM/ALBUTEROL 0.5/2.5MG 3 ML NEBU. NEB SCH (21:15)
[2022-01-17 21:16] LABS: TEAR DROP CELLS OCC
[2022-01-17 21:40] VITALS: BP 177/70
[2022-01-17 22:01] VITALS: BP 174/68
[2022-01-17 22:40] VITALS: BP 136/71
--- NOTE | 2022-01-17 23:00 | NUR ---
Blood transfusion started at 2024. Tubing primed with NS and then primed with blood. Transfusion started at 75ml/hr, pt monitored closely x15 mins. No reaction noted, transfusion increased to 150ml/hr. Blood completed at 2251, pt tolerated well. VSS. Pt now resting comfortably in bed.
[2022-01-17 23:40] VITALS: BP 163/70
[2022-01-18] MEDS: IPRATRPIUM/ALBUTEROL 0.5/2.5MG 3 ML NEBU. NEB SCH ×2 (03:21→09:09)
[2022-01-18 05:59] VITALS: BP 152/69
[2022-01-18] MEDS ORDERED: LEVOTHYROXINE 88 MCG TABLET PO SCH (06:00)
[2022-01-18 06:28] LABS: HEMATOCRIT 23.7 % (36.0-47.0); HEMOGLOBIN 7.8 g/dL (12.0-15.5); RED BLOOD COUNT 2.44 x10^6/uL (3.50-5.40); RED CELL DISTRIBUTION WIDTH 17.8 % (11.5-14.5); WHITE BLOOD COUNT 7.3 x10^3/uL (4.0-11.0)
[2022-01-18 06:47] LABS: ALBUMIN 3.2 g/dL (3.4-5.0); ALBUMIN/GLOBULIN RATIO 1.4 (1.0-1.7); CALCIUM 8.5 mg/dL (8.5-10.1); CREATININE 1.3 mg/dL (0.6-1.0); POTASSIUM 4.1 mmol/L (3.5-5.1); TOTAL BILIRUBIN 0.6 mg/dL (0.2-1.0); TOTAL PROTEIN 5.5 g/dL (6.4-8.2)
[2022-01-18 08:03] VITALS: BP 152/69
[2022-01-18] MEDS ORDERED: METOPROLOL SUCC 24HR ER 50 MG TAB.ER.24H. PO SCH (09:00)
[2022-01-18] MEDS ORDERED: ASPIRIN CHEWABLE 81 MG TABLET. PO SCH (09:00)
[2022-01-18] MEDS ORDERED: ATORVASTATIN CALCIUM 20 MG TABLET PO SCH (09:00)
[2022-01-18] MEDS ORDERED: LACTOBACILLUS RHAMNOSUS GG 1 CAPSULE. PO SCH (09:00)
[2022-01-18] MEDS ORDERED: TORSEMIDE 20 MG TABLET. PO SCH (09:00)
[2022-01-18] MEDS ORDERED: PANTOPRAZOLE 40 MG TABLET. PO SCH (09:00)
[2022-01-18] MEDS ORDERED: MULTIVITAMIN I-VITE TABLET. PO SCH (09:00)
[2022-01-18] MEDS ORDERED: FERROUS SULFATE 325 MG TABLET. PO SCH (09:00)
[2022-01-18] MEDS: BUDESONIDE 0.5 MG/2 ML NEBU NEB SCH (09:09)
--- NOTE | 2022-01-18 10:26 | NUR ---
SPOKE TO DR ORTIZ THIS AM REGUARDING PTS DISCHARGE PLANS PER PTS FAMILY'S REQUEST. DR ORTIZ RECCOMEDED THAT PT GO BACK TO [facility] SO SHE CAN BE MONITORED CLOSER FOR SIGNS OF ANEMIA HE BELIEVES THE PT HAS A GI BLEED. BUT ALSO STATED THAT IF PT WANTS TO GO HOME SHE CAN WITH HOME HEALTH AND NEEDS TO HAVE A CBC AND A CMP TWICE WEEKLY TO MONITOR HBG AND HCT.
--- NOTE | 2022-01-18 11:05 | NUR ---
PT IS DISCHARGED TO [facility]. PT IS STABLE AT TIME OF DISCHARGE. PT IS GIVEN ALL DISCHARGE AND FOLLOW UP INSTRUCTIONS. PTS IV IS REMOEVED. PT HAS ALL BELONINGS AT TIME OF DISCHARGE.
[2022-01-19] MEDS ORDERED: DIGOXIN 125 MCG TABLET PO SCH (09:00)
--- NOTE | 2022-01-19 11:42 | RAD ---
XR CHEST 1V INDICATION: SOA, COUGH COMPARISON STUDY: CT 01/09/2022. Radiograph 01/10/2022. FINDINGS: Lungs: Normal lung volume. Stable prominent interstitial marking. Pleura: Stable small pleural effusions. Heart and Mediastinum: Stable cardiomediastinal silhouette and great vessels. IMPRESSION: Stable interstitial prominence and small pleural effusions. Electronically signed by: Bishop Fajardo MD (01/18/2022 8:51 AM) [id number]
--- NOTE | 2022-01-19 11:42 | HP ---
DATE OF SERVICE: 01/18/2022 ADMIT DATE: 01/17/2022 ATTENDING PHYSICIAN: Dr. Sharma. CHIEF COMPLAINT: Anemia. HISTORY OF PRESENT ILLNESS: The patient is an 86-year-old female who had been a patient at [facility]. She is weak and tired. She has chronic anemia. Hemoglobin was 7.1 g/dL. She was admitted late last night for transfusion of red blood cells to increase oxygen carrying capacity. She has had a GI workup 5 years ago. She has no black tarry stools. There is an elevated BNP of 4900. She is admitted then for transfusion. PAST MEDICAL HISTORY: Significant for trigeminal neuralgia as well as hypertension. She also has chronic kidney disease, but I see her creatinine is actually 1.3 mg/dL. She recently moved here to be closer to her daughter and son-in-law. She had an endoscopy 5 years ago. She also is on thyroid replacement. ALLERGIES: She has allergies to SULFA DRUGS AND MORPHINE, EXACT REACTION IS UNCLEAR. CURRENT MEDICATIONS: Include Tylenol, albuterol, aspirin, budesonide, ___, ferrous sulfate, Synthroid, metoprolol, Protonix, MiraLax, Crestor, and torsemide. SOCIAL HISTORY: She is a nonsmoker, nondrinker. FAMILY HISTORY: Noncontributory. REVIEW OF SYSTEMS: Significant for dyspnea with exertion. She has been on supplemental oxygen for the last 7 years. She is . All other systems reviewed and turned to be negative. No COVID exposure. She has had her vaccines. PHYSICAL EXAMINATION: VITAL SIGNS: Her blood pressure on admission was 152/69, her pulse is 94 and regular. She is afebrile. Oxygen saturation 97% on room air. HEENT: Head is without trauma. Pupils are reactive. Sclerae nonicteric. The oropharynx is clear. NECK: Supple, no bruits. LUNGS: Good breath sounds. CARDIOVASCULAR: Showed regular heart tones. No gallops. ABDOMEN: Soft. EXTREMITIES: Without edema. NEUROLOGIC: Focally intact. SKIN: Warm and dry. LABORATORY DATA: As noted. ASSESSMENT: 1. An 86-year-old female with symptomatic anemia. 2. Essential hypertension. 3. History of congestive heart failure. PLAN: 1. Admission for transfusion of 1 unit of packed red cells. 2. Continue home meds. 3. She was scheduled to get erythropoietin. I do not think this is necessary given the fact her creatinine is 1.3 mg/dL. 4. I shall contact her daughter regarding disposition. HYACINTH DR: Pam TID: [id number] CC: MERARI ORTIZ MD
--- NOTE | 2022-01-19 11:42 | DS ---
DATE OF DISCHARGE: 01/18/2022 ATTENDING PHYSICIANS: Dr. Ortiz and Dr. Sharma FINAL DISCHARGE DIAGNOSES: 1. Symptomatic anemia. 2. Admission for transfusion of packed red cells. 3. Acute on chronic congestive heart failure. 4. Essential hypertension. 5. Gastroesophageal reflux disease. HISTORY AND PHYSICAL: The patient is a pleasant 86-year-old female with known anemia, hemoglobin 7.1 grams. She was admitted for transfusion in a symptomatic patient to increase oxygen carrying capacity. PHYSICAL EXAMINATION: Please see the dictated note. PERTINENT LABORATORY AND X-RAY STUDIES: Hemoglobin was 7.1 g/dL, after transfusion came up to 7.8 g/dL. Creatinine was 1.3 mg percent. Electrolytes within range. COURSE IN THE HOSPITAL: The patient was admitted. She received 1 unit of packed red cells. She did well. She still has chronic dyspnea. She is on supplemental oxygen continuously for the last 5 years. On the next day, I listened to her lungs, they were clear with good breath sounds. Her chest x-ray showed some chronic changes with blunting of both costophrenic angles. No overt decompensation. Her hemoglobin came up and she was ready for discharge. We are going to send her back to [facility]. She will be discharged later this evening to return to her daughter's home. Her home meds are unchanged. She will continue her Tylenol, albuterol, aspirin, budesonide, digoxin, iron, Synthroid, Lutein, metoprolol, Protonix, MiraLax, Crestor and Demadex, dose unchanged. She will have a followup CBC in 2 weeks. She was discharged from our hospital in stable condition with explicit drug and followup care. RUPAL DR: Pam TID: [id number] CC: MERARI ORTIZ MD, NIKOLE RIDDLE
== END 2022-01-18 11:05 ==
LOC: INTOOBSV 16:35 → 1 SOUTH 16:35
PROVIDERS: ADMIT Internal Medicine; ATTEND Internal Medicine
DX: D64.9 Anemia, unspecified (principal); I13.0 Hypertensive heart and chronic kidney disease with heart failure and stage 1 through stage 4 chronic kidney disease, or unspecified chronic kidney disease; I50.23 Acute on chronic systolic (congestive) heart failure; N18.9 Chronic kidney disease, unspecified; K21.9 Gastro-esophageal reflux disease without esophagitis; Z99.81 Dependence on supplemental oxygen; Z79.82 Long term (current) use of aspirin; Z79.899 Other long term (current) drug therapy; Z98.890 Other specified postprocedural states
CPT/HCPCS: 36415; 36430; 71045; 80053; 83880; 85007; 85025; 85027; 85610; 86850; 86900; 86901; 86920; 94640; 94760; G0378; G0379; P9016

== ENCOUNTER → 2022-02-23 | Outpatient (CLI) | payer MEDICARE ==
[~2022-02-23] MED LIST changes: +ACET325T21 PO; +ASPI-630 PO; +BUDE0.5A11 NEB; +DIGO125T17 PO; +FERR325T14 PO; +IPRA3AMP29 NEB; +LACT1CAP19 PO; +LUTE1CAP5 PO; +METO100T5 PO; +POLY17PO5 PO; +TORS20TA2 PO
--- NOTE | 2022-02-23 17:45 | RAD ---
Two-view chest dated 02/23/2022 5:42 PM Comparison: 01/18/2022 CLINICAL INDICATION: Cough and shortness of breath FINDINGS: PA and lateral views obtained. Heart and mediastinal contours are stable. Coarsened interstitial sohail ings throughout both lungs, similar to prior study. Is blunting of the costophrenic sulci. Previously described left basilar consolidation has improved. No pneumothorax. IMPRESSION: 1. Interval improvement in left basilar consolidation. 2. Diffuse interstitial changes with small pleural effusions, unchanged. Electronically signed by: Rafi Carrasco MD (02/23/2022 5:43 PM) GILDA
== END ==
LOC: RAD 17:11
PROVIDERS: ATTEND Internal Medicine Critical Care Medicine
DX: R91.8 Other nonspecific abnormal finding of lung field (principal); J90 Pleural effusion, not elsewhere classified; I51.9 Heart disease, unspecified
CPT/HCPCS: 71046